=== PATIENT | male | born 1990 | race African-American/Black ===

== ENCOUNTER 2022-12-16 16:34 | Emergency (ER) | payer SELFPAY ==
[2022-12-16 16:44] VITALS: BP 129/80; PULSE 74; RESP 16; TEMP 36.6; O2SAT 98
--- NOTE | 2022-12-16 17:29 | ED.GENADULT ---
HPI - General Adult General Chief complaint: Urogenital-Male Stated complaint: check up Time Seen by Provider: 12/16/22 17:11 History of Present Illness HPI narrative: This is a 32-year-old male who presents to the ED for STD rule out. He states he is not having any genital symptoms including discharge, dysuria, penile pain or scrotal pain. He is concerned for an STD as his significant other is here to get tested for possible STD as well. He reports 1 partner. He denies history of STDs. He does not have any past medical history. Has not taken any recent antibiotics. Denies fever, chills, abdominal pain. Related Data Allergies Allergy/AdvReac Type Severity Reaction Status Date / Time No Known Allergies Allergy Verified 12/16/22 16:36 Review of Systems Review of Systems: CONSTITUTIONAL: Denies fever, chills, or sweats. EYES: Denies visual changes, redness, or discharge. ENT: Denies rhinorrhea, congestion, sore throat, or otalgia. CARDIOVASCULAR: Denies chest pain, palpitations, or edema. RESPIRATORY: Denies cough or dyspnea. GASTROINTESTINAL: Denies abdominal pain, nausea, vomiting, or diarrhea. GENITOURINARY: Denies dysuria or hematuria. SKIN: Denies rash or itching. MUSCULOSKELETAL: Denies back pain, joint pain, or myalgia. NEUROLOGIC: Denies headache, numbness, dizziness, or weakness. PSYCHIATRIC: Denies anxiety or depression. Exam Narrative: GENERAL: Well-appearing, well-nourished, and in no acute distress. HEAD: Normocephalic, atraumatic. EYES: PERRLA and EOMI. ENT: Nares clear, no rhinorrhea or epistaxis. Mucous membranes moist. Oropharynx without tonsillar hypertrophy exudate or other lesions. NECK: Supple. No adenopathy or masses. CHEST: No respiratory distress. Clear to auscultation. No wheezes rales or rhonchi HEART: Regular rate and rhythm. No murmur heard. Normal peripheral pulses. ABDOMEN: Soft, nontender, nondistended, normal active bowel sounds. EXTREMITIES: Normal range of motion. No edema. SKIN: Warm, dry, no rash. NEURO: Alert and oriented x3. No focal deficits. PSYCH: Normal mood and affect. Course Vital Signs Vital signs: Vital Signs Temperature 97.9 F 12/16/22 16:44 Pulse Rate 74 12/16/22 16:44 Respiratory Rate 16 12/16/22 16:44 Blood Pressure 129/80 12/16/22 16:44 Pulse Oximetry 98 12/16/22 16:44 Temperature 98.1 F 12/16/22 17:36 Pulse Rate 74 12/16/22 20:08 Respiratory Rate 18 12/16/22 20:08 Blood Pressure 128/88 12/16/22 20:08 Pulse Oximetry 97 12/16/22 20:08 Oxygen Delivery Room Air 12/16/22 17:36 Medical Decision Making MDM Narrative Medical decision making narrative: This is a 32-year-old male who presents to the ED with chief complaint of STD exposure. He reports that his partner has had STD symptoms and he would like empiric treatment. He is unsure if partner has tested positive at this point. He does not have any symptoms himself. Vitals are stable. Afebrile. Exam is benign. Patient is requesting empiric treatment. Empiric treatment started here in the ED with Flagyl, Rocephin and will be given a prescription for doxycycline. Return precautions given. Supportive measures discussed. Encouraged close follow-up with PCP. Vital Signs Vital Signs: Vital Signs Temperature 97.9 F 12/16/22 16:44 Pulse Rate 74 12/16/22 16:44 Respiratory Rate 16 12/16/22 16:44 Blood Pressure 129/80 12/16/22 16:44 Pulse Oximetry 98 12/16/22 16:44 Temperature 98.1 F 12/16/22 17:36 Pulse Rate 74 12/16/22 20:08 Respiratory Rate 18 12/16/22 20:08 Blood Pressure 128/88 12/16/22 20:08 Pulse Oximetry 97 12/16/22 20:08 Oxygen Delivery Room Air 12/16/22 17:36 Lab Data Labs: Lab Results 12/16/22 12/16/22 Range/Units 17:43 17:43 Urine Color Yellow (Yellow) Urine Appearance Turbid H (Clear) Urine pH 7.5 (5.0-9.0) Ur Specific [place] 1.020 (1.001-1.035) Urine Protein Negative (Nega
[2022-12-16 17:36] VITALS: BP 138/70; PULSE 75; RESP 15; TEMP 36.7; O2SAT 98
[2022-12-16 18:19] LABS: Appearance Urine Turbid (Clear); Bacteria Urine None Seen /hpf; Bilirubin Urine Negative (Negative); Blood Urine Negative (Negative); Color Urine Yellow (Yellow); Glucose Urine UA Negative (Negative); Ketones Urine Negative (Negative); Leukocyte Esterase Ur Negative LEU/UL (Negative); Nitrate Urine Negative (Negative); Non Pathogenic Casts 0-2; Protein Urine Negative (Negative); Squamous Epithelial Cell Urine None seen /hpf (Few); Urobilinogen Urine 0.2 mg/dL (<2.0); WBC Urine 0-5 /hpf; pH Urine 7.5 (5.0-9.0)
[2022-12-16 18:20] LABS: Add Urine Microscopic? YES
[2022-12-16] MEDS: ONDANSETRON HCL ODT 4 MG TABLET PO (19:01)
[2022-12-16] MEDS: metroNIDAZOLE 250 MG TABLET 2000 MG PO (19:01)
[2022-12-16] MEDS: LIDOCAINE HCL 1% LOCAL INJ 10 ML VIAL (19:11)
[2022-12-16] MEDS: cefTRIAXone 1 GM VIAL 0.5 GM IM (19:12)
--- NOTE | 2022-12-16 19:14 | PC.NURSE ---
Report received from SHANNA Santiago. Assumed care of patient at this time.
[2022-12-16 20:08] VITALS: BP 128/88; PULSE 74; RESP 18; O2SAT 97
== END 2022-12-16 20:10 | disposition home or self-care (01) ==
PROVIDERS: Emergency Provider Physician Assistant
DX: Z11.3 Encounter for screening for infections with a predominantly sexual mode of transmission (principal)
CPT/HCPCS: 81001; 87491; 87591; 96372; 99283; A9270; J0696